=== PATIENT | female | born 1950 | race Caucasian/White ===

== ENCOUNTER → 2017-04-05 | Outpatient (CLI) | payer MEDICARE, BC ==
[~2017-04-05] MED LIST: ASPIRIN; AZOR 5-20 MG T1 EACH PO; CO Q 10; CYMBALTA PO; DEMEROL; ESTROPIPATE1.5 MG; LOPRESSOR PO; METOPROLOL TAR25 MG PO; PAXIL; TOFRANIL; TOFRANIL PO; VIT B COMPLEX; VIT E; [UNRECOGNIZED DRUG - OTHER]
--- NOTE | ~2017-04-05 | CT137 ---
[facility] A Service of [facility] RADIOLOGY TEXT RESULTS PATIENT: ALE BUI LOCATION: [facility] : 48 UNIT #: [id number] AGE: [address]: Rosina Grey MD SEX: F ORDER DR: [id number] [facility] [address] [place], [place] [address] [id number] O MR#: [id number] [facility] #: [id number] NAME: ALE BUI. : 1950 SEX: F STUDY DATE/TIME: 04/05/2017 8:57 UNIT: [facility] ROOM: STUDY DESCRIPTION: CT Lung Screening annual Attending Physician: Rosina Grey M.D. Referring Physician: Rosina Grey M.D. Ordering Physician: Rosina Grey M.D. Primary Care Physician: Rosina Grey M.D. MEDICAL IMAGING REPORT This report is preliminary unless electronic signature is present EXAM CT chest without contrast low-dose lung cancer screening protocol DATE 04/05/2017 HISTORY 60 pack-year smoking history. Coughing for 2 years. Lung cancer screening. COMPARISON CT chest without contrast low-dose lung cancer screening protocol 03/18/2016. PROCEDURE 2 mm noncontrast axial images were obtained through the chest per low-dose lung cancer screening protocol. Sagittal and coronal reformatted images were obtained. This CT exam was performed with one or more of the following radiation dose reduction techniques: automatic control, adjustment of mA and/or kV according to patient size, and iterative reconstruction. CT dose index volume in mGy is topogram 0.30 lung cancer screening 3.00. Dose length product mGy per cm topogram 15.4 for lung cancer screening 110.86. FINDINGS Moderate emphysematous changes are present, both paraseptal and centrilobular in distribution. There are no suspicious pulmonary nodules. Benign calcified granuloma is noted within the right lower lobe. No acute airspace disease. No abnormal bronchial wall thickening. Small amount of mucus or secretions layers dependently within the left mainstem bronchus. [facility] A Service of [facility] RADIOLOGY TEXT RESULTS PATIENT: ALE BUI LOCATION: [facility] : 48 UNIT #: [id number] AGE: [address]: Rosina Grey MD SEX: F ORDER DR: Left thyroidectomy changes. No pathologic adenopathy is identified. No pleural effusion. Cholecystectomy. Dense calcific atherosclerosis in the imaged upper abdominal aorta. There is very mild left adrenal gland thickening without discrete nodularity, likely on the basis of hyperplasia, unchanged. No suspicious osteolytic or osteoblastic abnormalities are identified. IMPRESSION 1. LungRADS category 1. Negative lung cancer screening study. Low-dose CT chest lung cancer screening protocol recommended in 1 year per LungRADS protocol. 2. Moderate emphysema. Dictated by... Nydia Brumfield M.D. THIS IS AN ELECTRONICALLY VERIFIED REPORT Nydia Brumfield M.D. at 04/06/2017 12:09 PM MAGDY/savanah TD: 04/05/2017 12:54 JOB #: [id number] MEDICAL IMAGING REPORT Page 1 of 1 COPY
== END | disposition home or self-care (01) ==
LOC: CCAT 03-23 09:30
DX: F17.210 Nicotine dependence, cigarettes, uncomplicated (principal)
CPT/HCPCS: G0297